=== PATIENT | male | born 1970 | race Asian ===

== ENCOUNTER 2024-06-10 09:34 | Emergency (ER) | payer MEDICAID ==
[~2024-06-10] VITALS: Ht 160 cm; Wt 74.8 kg
[2024-06-10 09:40] VITALS: BP_SYST 138; PULSE 88; RESP 22; TEMP 98.3; O2SAT 98
[2024-06-10 10:33] LABS: BASOPHILS % (AUTO) 0.6 % (0.0-2.0); EOSINOPHILS % (AUTO) 0.5 % (0.0-4.0); HEMATOCRIT 42.5 % (36-54); HEMOGLOBIN 14.1 g/dL (14.0-18.0); LYMPHOCYTES # (AUTO) 1.3 K/uL (1.0-5.5); LYMPHOCYTES % (AUTO) 23.7 % (20.5-51.5); MEAN CORPUSCULAR HEMOGLOBIN 29 pg (27-31); MEAN CORPUSCULAR HGB CONC 33 % (32-36); MEAN CORPUSCULAR VOLUME 86 fL (79.0-98.0); MONOCYTES # (AUTO) 0.4 K/uL (0.0-1.0); MONOCYTES % (AUTO) 7.4 % (1.7-9.3); NEUTROPHILS # (AUTO) 3.6 K/uL (1.8-7.7); NEUTROPHILS % (AUTO) 67.8 % (40.0-70.0); PLATELET COUNT (AUTO) 270 K/uL (130-430); RED BLOOD CELL COUNT(AUTO) 4.92 MIL/uL (4.2-6.2); RED CELL DISTRIBUTION WIDTH 13.3 % (9.0-15.0); WHITE BLOOD COUNT (AUTO) 5.3 K/uL (4.8-10.8)
[2024-06-10 10:35] LABS: ERYTHROCYTE SEDIMENTATION RATE 35 MM/HR (0-15)
[2024-06-10 10:53] LABS: INR 0.9 (0.80-1.20); PROTHROMBIN TIME 9.2 SECS (9.5-12.5)
[2024-06-10 11:51] LABS: CALCIUM 8.8 mg/dL (8.4-11.0); CREATININE 0.97 mg/dL (0.55-1.30); POTASSIUM 3.8 mmol/L (3.5-5.1); URIC ACID 7.2 mg/dL (2.4-7.0)
[2024-06-10] MEDS ORDERED: IBUP-1971 PO (12:42)
[2024-06-10] MEDS ORDERED: CLIN-142 PO (12:42)
[2024-06-10 12:50] VITALS: BP_SYST 131; PULSE 71; RESP 16; TEMP 97.6; O2SAT 95
== END 2024-06-10 13:05 | disposition home or self-care (01) ==
LOC: SED 09:34
DX: M70.22 Olecranon bursitis, left elbow (principal)
CPT/HCPCS: 36415; 80048; 84550; 85025; 85610; 85651; 85730; 99284